=== PATIENT | female | born 1950 | race Caucasian/White ===

== ENCOUNTER → 2021-08-19 12:52 | Outpatient (CLI) | payer MEDICARE, SELFPAY ==
--- NOTE | 2021-08-19 13:06 | XR_ITS ---
PROCEDURE: XR CERVICAL SPINE 5V CLINICAL INDICATION: NECK PAIN COMPARISON: No exams were available for comparison FINDINGS: No fracture or dislocation. No lytic or blastic change. There is normal mineralization. There is degenerative disc disease at C5-C6 and C6-C7 with prominent anterior osteophytes at that level and disc space narrowing. There is some minimal foraminal narrowing on the right at C5-C6 and on the left at C5-C6 and C6-C7. Facet hypertrophic changes are present from C3-C7. This is most prominent on the left at C3-C4. Mild osteoarthritic changes are present involving the C1-C2 lateral mass on the left. Normal alignment. Other findings:None. IMPRESSION: Cervical spondylosis as described above. Dictated by: Esteban Gaitan MD 08/19/2021 13:56 Esteban Gaitan MD in [place] 08/19/2021 13:56
== END ==
PROVIDERS: PCP Family Medicine; Visit Provider Family Medicine
DX: M54.2 Cervicalgia (principal)
CPT/HCPCS: 72050

== ENCOUNTER → 2022-05-08 11:22 | Outpatient (CLI) | payer MEDICARE, SELFPAY ==
--- NOTE | 2022-05-08 11:28 | XR_ITS ---
FINAL REPORT CLINICAL HISTORY: SWELLING OF LEFT KNEE JOINT. LEFT ANTERIOR KNEE PAIN, no injury FINDINGS: LEFT KNEE Three views demonstrate no acute fracture or dislocation. Mild degenerative changes are present. There is no joint effusion. Note is made of mild vascular calcification. No acute soft tissue abnormality is seen. IMPRESSION: Mild degenerative changes. Reviewed, Interpreted and Dictated by Deng Nicole III, MD Transcribed by Beverly Gerard Authenticated and [facility]
== END ==
PROVIDERS: PCP Nurse Practitioner Family; Visit Provider Nurse Practitioner Family
DX: M25.562 Pain in left knee (principal); M25.462 Effusion, left knee
CPT/HCPCS: 73562

== ENCOUNTER 2024-05-08 07:11 | Outpatient (CLI) | payer MEDICARE, SELFPAY ==
--- NOTE | 2024-05-08 07:20 | US_ITS ---
FINAL REPORT CLINICAL HISTORY: ABD PAIN COMPARISON: None FINDINGS: Sonographic images of the right upper quadrant were obtained. The pancreas is partially obscured.The liver has an unremarkable appearance. There is an echogenic nonshadowing focus in the gallbladder of uncertain etiology favored to represent polyp over a stone. There is no evidence of biliary ductal dilatation.The common duct measures 3 mm. Limited images of the right kidney are unremarkable. IMPRESSION: Echogenic nonshadowing focus in the gallbladder of uncertain etiology. Follow-up ultrasound in 6 months recommended. Reviewed, Interpreted and Dictated by Deng Nicole III, MD Transcribed by Gayle Rodriguez Authenticated and [facility]
== END 2024-05-08 23:59 | disposition home or self-care (01) ==
LOC: RAD 07:12
PROVIDERS: PCP Family Medicine; Visit Provider Family Medicine
DX: R10.9 Unspecified abdominal pain (principal)
CPT/HCPCS: 76705

== ENCOUNTER 2024-06-19 12:09 | Outpatient (CLI) | payer MEDICARE, SELFPAY ==
[2024-06-19 13:13] LABS: Blood Urea Nitrogen 16 mg/dl (7-17); Estimated Glomerular Filt Rate 70 ml/min (>60); GFR (African American) 85 ML/MIN (>60)
== END 2024-06-19 23:59 | disposition home or self-care (01) ==
LOC: LAB 12:12
PROVIDERS: PCP Family Medicine; Visit Provider Family Medicine
DX: R10.9 Unspecified abdominal pain (principal)
CPT/HCPCS: 36415; 82565; 84520

== ENCOUNTER 2024-06-26 10:00 | Outpatient (CLI) | payer MEDICARE, SELFPAY ==
--- NOTE | 2024-06-26 10:05 | CT_ITS ---
FINAL REPORT TECHNIQUE: Axial imaging of the abdomen was obtained after the intravenous administration of contrast. This study was performed with techniques to keep radiation doses as low as reasonably achievable (ALARA). Individualized dose reduction techniques using automated exposure control or adjustment of mA and/or kV according to the patient's size were employed. CLINICAL HISTORY: RT UPPER ABD PAIN FINDINGS: Groundglass nodules are seen in the subpleural right lower lobe which could be infectious or inflammatory. Liver is homogeneous without focal lesion. Gallbladder is present. There is no evidence of biliary ductal dilatation. The pancreas appears normal. The spleen size is within normal limits. There is no evidence of renal mass or hydronephrosis. There is focal scarring in the right posterior kidney. GI tract is without acute abnormality. There is a large amount of retained stool in the visualized colon. There is no adenopathy, free fluid or acute osseous abnormality. IMPRESSION: No acute abnormality in the abdomen. Groundglass nodularity in the right lower lobe, favor infectious/inflammatory. Reviewed, Interpreted and Dictated by Cristy Blair MD Transcribed by Lizabeth Laureano Authenticated and [facility]
== END 2024-06-26 23:59 | disposition home or self-care (01) ==
LOC: RAD 10:01
PROVIDERS: PCP Family Medicine; Visit Provider Family Medicine
DX: R10.9 Unspecified abdominal pain (principal)
CPT/HCPCS: 74160; Q9967

== ENCOUNTER 2024-07-19 14:42 | Outpatient (CLI) | payer MEDICARE, SELFPAY ==
--- NOTE | 2024-07-19 14:45 | CT_ITS ---
FINAL REPORT TECHNIQUE: Routine axial images were obtained from the lung apices to below the diaphragm following IV contrast administration. Individualized dose reduction techniques using automated exposure control or adjustment of the mA and/or kV according to the patient size were employed. CLINICAL HISTORY: ABDNORMAL CHEST XRAY see prior ct abd scan COMPARISON: CT abdomen and pelvis dated 06/26/2024 FINDINGS: CT CHEST WITH CONTRAST: CT examination of the chest was performed to follow-up ground glass nodules seen in the right lung base on a prior CT of the abdomen and pelvis from June 26. Moderate coronary artery calcifications are noted. No evidence of pericardial or pleural effusions are seen. No significant hilar or mediastinal adenopathy are noted. No axillary adenopathy is present. There are subtle ground glass nodular opacities in the posterior right lung base similar to those seen on the previous CT examination. There is a 10 mm irregularly marginated nodular opacity present in the posterior right upper lobe, best seen on image #23 of series 2. There is a small pleural-based nodular focus in the posterior right upper lobe, seen on image #27 of series 2. IMPRESSION: Subtle ground glass nodular opacities remain present in the posterior right lung base, similar to those seen on the prior CT of June 26. 2 other nodules are noted in the right lung as described above, the largest measuring 10 mm in size in the posterior right upper lobe. Per Fleischner criteria, recommend a follow-up CT in 3 months for further evaluation. Reviewed, Interpreted and Dictated by Mark Hernandez MD Transcribed by Aranza Matt Authenticated and [facility]
[2024-07-19] MEDS: IOPAMIDOL-370 (76%);100ML BOTTLE 75 ML IV (15:39)
[2024-07-19] MEDS: SODIUM CHLORIDE 0.9% 10ML SYR (RAD ONLY) 10 ML IV (15:39)
== END 2024-07-19 23:59 | disposition home or self-care (01) ==
LOC: RAD 14:43
PROVIDERS: PCP Family Medicine; Visit Provider Family Medicine
DX: R93.89 Abnormal findings on diagnostic imaging of other specified body structures (principal); R91.8 Other nonspecific abnormal finding of lung field
CPT/HCPCS: 71260; Q9967